=== PATIENT | female | born 1950 | race Caucasian/White ===

== ENCOUNTER 2017-11-13 14:45 | Emergency (ER) | payer MEDICARE, BC ==
[2017-11-13 15:20] LABS: CHLORIDE,CL 95 mEq/L (98-106)
[2017-11-13 15:25] LABS: SODIUM,NA 135 mEq/L (136-145)
--- NOTE | 2017-11-13 15:51 | EDM.PDOC ---
ED HPI GENERAL MEDICAL PROBLEM - General Chief Complaint: Cardiovascular Problem Stated Complaint: NUMBNESS IN FACE/NECK PAIN Time Seen by Provider: 11/13/17 15:05 Source of Information: Reports: Patient History Limitations: Reports: No Limitations - History of Present Illness INITIAL COMMENTS - FREE TEXT/NARRATIVE: States that on Friday she had a episode where she had pain in the left side of her neck and then numbness around her mouth. States that her face felt funny but it wasn't numb. It was her complete face and not unilateral. No facial droop was noted. She states that it only lasted about 15 seconds and then went away. Denied any recent injuries or other pain in her neck. On Friday evening it happened again but lasted for a longer time. She would estimate under a minute and then completely resolved. She had another episode today so came to the ER to be evaluated for it. When she arrived here all symptoms were resolved. She stated it started with a pain in the left side of her neck and then had some numbness around her mouth and a different feeling to her face. "It wasn't normal but it wasn't numb" She states that she had no weakness and no facial droop or change in speech. She feels normal at this time. Onset: Gradual Location: Reports: Face (around her mouth was numb and "my face felt different") , Neck (left side) Quality: Reports: Other (numbness) Severity: Mild Associated Symptoms: Reports: No Other Symptoms. Denies: Headaches, Rash, Shortness of Breath, Weakness - Related Data Allergies Allergy/AdvReac Type Severity Reaction Status Date / Time No Known Allergies Allergy Verified 11/13/17 14:54 Home Meds: Home Meds Albuterol Sulfate [Proair Hfa] 2 puff IH QID PRN 11/13/17 [History] Benazepril/Hydrochlorothiazide [Benazepril-HCTZ 20-12.5 MG Tablet] 1 tab PO DAILY 11/13/17 [History] Cholecalciferol (Vitamin D3) [Vitamin D3] 2,000 unit PO DAILY 11/13/17 [History] Diethylpropion HCl [Diethylpropion HCl ER] 75 mg PO DAILY 11/13/17 [History] Estradiol 0.5 mg PO DAILY 11/13/17 [History] Loratadine [Claritin] 10 mg PO DAILY 11/13/17 [History] Past Medical History Cardiovascular History: Reports: Hypertension Respiratory History: Reports: Asthma Endocrine/Metabolic History: Reports: Obesity/BMI 30+ - Past Surgical History HEENT Surgical History: Reports: Adenoidectomy, Tonsillectomy GI Surgical History: Reports: Appendectomy Female Surgical History: Reports: Hysterectomy, Oophorectomy Social & Family History - Tobacco Use Smoking Status *Q: Never Smoker - Caffeine Use Caffeine Use: Reports: Coffee, Soda - Recreational Drug Use Recreational Drug Use: No ED ROS GENERAL - Review of Systems Review Of Systems: See Below Constitutional: Denies: Weakness, Fatigue, Diaphoresis HEENT: Denies: Vision Change Respiratory: Reports: No Symptoms Cardiovascular: Reports: No Symptoms GI/Abdominal: Reports: No Symptoms : Reports: No Symptoms Musculoskeletal: Reports: No Symptoms Skin: Reports: No Symptoms Neurological: Reports: Numbness, Other (see HPI) ED EXAM, GENERAL - Physical Exam Exam: See Below Exam Limited By: No Limitations General Appearance: Alert, WD/WN, No Apparent Distress Eye Exam: Bilateral Eye: Normal Inspection, PERRL Ears: Normal External Exam, Normal Canal, Hearing Grossly Normal, Normal TMs Nose: Normal Inspection Throat/Mouth: Normal Inspection, Normal Oropharynx Head: Atraumatic, Normocephalic Neck: Normal Inspection, Supple, Non-Tender, Full Range of Motion Respiratory/Chest: No Respiratory Distress, Lungs Clear, Normal Breath Sounds Cardiovascular: Normal Peripheral Pulses, No Murmur, Other (does have frequent PVC on her telemetry. will have bigemeny and then will be in normal sinus. Has noted these for several months.) Peripheral Pulses: 4+: Carotid (L), Carotid (R) GI/Abdominal: Normal Bowel Sounds, Soft, Non-Tender, No Organomegaly Back Exam: Normal Inspection, Other Extremities: Normal Inspection, Normal Range of Motion, No Pedal Edema, Normal Capillary Refill Neurological: Alert, Oriented, CN II-XII Intact, Normal Cognition, Normal Gait, Normal Reflexes, No Motor/Sensory Deficits Psychiatric: Normal Affect, Normal Mood Skin Exam: Warm, Dry, Intact, Normal Color, No Rash Lymphatic: No Adenopathy Course - Vital Signs Last Recorded V/S: Last Vital Signs Temp 97.3 F 11/13/17 14:47 Pulse 100 11/13/17 15:43 Resp 16 11/13/17 14:47 BP 159/80 H 11/13/17 15:43 Pulse Ox 98 11/13/17 14:47 - Orders/Labs/Meds Labs: Laboratory Tests 11/13/17 11/13/17 11/13/17 Range/Units 14:51 14:51 14:51 WBC 9.6 (5.0-10.0) 10^3/uL RBC 4.53 (4.00-5.50) 10^6/uL Hgb 14.9 (12.0-16.0) g/dL Hct 44.0 (37.0-47.0) % MCV 97.1 H (82.0-94.0) fL MCH 32.9 H (27.0-32.0) pg MCHC 33.9 (33.0-38.0) g/dL RDW Coeff of Steve 13.4 (11.0-15.0) % Plt Count 317 (150-400) 10^3/uL Neut % (Auto) 77.2 (35-85) % Lymph % (Auto) 14.7 (10-55) % [place] % (Auto) 7.2 (0-16) % Eos % (Auto) 0.6 (0-5) % Baso % (Auto) 0.3 (0-3) % Neut # (Auto) 7.42 H (1.80-7.00) 10^3/uL Lymph # (Auto) 1.41 (1.00-4.80) 10^3/uL Coles # (Auto) 0.69 (0.00-0.80) 10^3/uL Eos # (Auto) 0.06 (0.00-0.45) 10^3/uL Baso # (Auto) 0.03 10^3/uL Sodium 135 L (136-145) mEq/L Potassium 3.6 (3.5-5.0) mEq/L Chloride 95 L (98-106) mEq/L Carbon Dioxide 28 (21-32) mmol/L BUN 16 (7-18) mg/dL Creatinine 1.1 H (0.6-1.0) mg/dL Est Cr Clr Drug Dosing 47.73 mL/min Estimated GFR (MDRD) 50 L (>=60) mL/min Glucose 167 H D (75-99) mg/dL Calcium 9.0 (8.4-10.1) mg/dL Total Bilirubin 0.5 (0.0-1.0) mg/dL AST 13 L (15-37) U/L ALT 22 (12-78) U/L Alkaline Phosphatase 88 (46-116) U/L Lactate Dehydrogenase 176 (100-190) U/L Creatine Kinase 46 (21-215) U/L Troponin I < 0.017 (0.00-0.06) ng/mL Total Protein 7.5 (6.4-8.2) g/dL Albumin 3.8 (3.4-5.0) g/dL Urine Color Yellow (YELLOW) Urine Appearance Clear (CLEAR) Urine pH 5.0 (4.5-8.0) Ur Specific [place] 1.025 H (1.003-1.020) Urine Protein Negative (NEGATIVE) mg/dL Urine Glucose (UA) Negative (NEGATIVE) mg/dL Urine Ketones Trace H (NEGATIVE) mg/dL Urine Occult Blood Negative (NEGATIVE) Urine Nitrite Negative (NEGATIVE) Urine Bilirubin Negative (NEGATIVE) Urine Urobilinogen 0.2 (0.2-1.0) EU/dL Ur Leukocyte Esterase Negative (NEGATIVE) Urine RBC Not seen (0-5) /HPF Urine WBC Not seen (0-5) /HPF Ur Squamous Epith Cells Few H (NOT SEEN) /HPF Urine Mucus Few H (NOT SEEN) /HPF Departure - Departure Time of Disposition: 15:45 Disposition: Home, Self-Care 01 Condition: Good Clinical Impression: Palpitations, Numbness around mouth Instructions: Hypertension, [id number] Referrals: Buddy Shah MD [Primary Care Provider] - Forms: ED Department Discharge Additional Instructions: Carotid ultrasound Friday at 1:30. check in at the front office 15 minutes prior to appt. Stop the [place] Stop at clinic in the next 2-3 days for recheck BP. Return if symptoms reappear. - Problem List & Annotations (1) Numbness around mouth SNOMED Code(s): 547545535 Code(s): R20.0 - ANESTHESIA OF SKIN Status: Acute Priority: High (2) Palpitations SNOMED Code(s): 65848957 Code(s): R00.2 - PALPITATIONS Status: Acute Priority: High
== END 2017-11-13 15:55 | disposition home or self-care (01) ==
LOC: CC.ED 14:45
DX: R00.2 Palpitations (principal); R20.0 Anesthesia of skin; I10 Essential (primary) hypertension
CPT/HCPCS: 36415; 80053; 81001; 82550; 83615; 84484; 85025; 93005; 93010; 99284